=== PATIENT | male | born 1980 | race African-American/Black ===

== ENCOUNTER 2025-07-21 21:55 | Emergency (ER) | payer OTHER ==
[~2025-07-21] VITALS: Ht 188 cm; Wt 91.3 kg
[2025-07-21 22:07] VITALS: TEMP 98.5
[2025-07-21 22:23] VITALS: BP 123/86; PULSE 94; RESP 18; O2SAT 99
[2025-07-21 22:46] LABS: PLATELET COUNT (AUTO) 258 K/uL (150-450); RED BLOOD CELL COUNT(AUTO) 5.18 MIL/uL (4.50-5.90); RED CELL DISTRIBUTION WIDTH 12.8 % (11.5-14.5); WHITE BLOOD COUNT (AUTO) 12.6 K/uL (4.5-11.0)
[2025-07-21 22:57] LABS: CALCIUM, TOTAL 9.1 mg/dL (8.8-10.5); CREATININE 0.98 mg/dL (0.60-1.30); GLOMERULAR FILTR. RATE CALC > 60 mL/min (>60); GLUCOSE,RANDOM 89 mg/dL (70-110); SODIUM SERUM 134 mmol/L (136-145); UREA NITROGEN, BLOOD 9 mg/dL (7-18)
[2025-07-21 23:07] LABS: TROPONIN I-HIGH SENSITIVITY 47 ng/L (<76)
== END 2025-07-22 00:25 | disposition home or self-care (01) ==
LOC: EMS 21:55
DX: R07.89 Other chest pain (principal); M25.511 Pain in right shoulder; F10.129 Alcohol abuse with intoxication, unspecified; F20.9 Schizophrenia, unspecified; I10 Essential (primary) hypertension; F17.210 Nicotine dependence, cigarettes, uncomplicated; Y90.6 Blood alcohol level of 120-199 mg/100 ml
CPT/HCPCS: 99285; 71045; 80048; 84484; 85025; 85610; 85730; 36415; 93005; G0480